=== PATIENT | female | born 1960 | race Caucasian/White ===

== ENCOUNTER → 2017-08-18 | Outpatient (CLI) | payer OTHER | END | disposition home or self-care (01) | LOC: CFH 10:49 | PROVIDERS: ATTEND Obstetrics & Gynecology | DX: Z12.31 Encounter for screening mammogram for malignant neoplasm of breast (principal) | CPT/HCPCS: G0202 ==

== ENCOUNTER → 2020-06-18 | Outpatient (CLI) | payer OTHER | END | disposition home or self-care (01) | LOC: CFH 14:03 | PROVIDERS: ATTEND Obstetrics & Gynecology | DX: Z12.31 Encounter for screening mammogram for malignant neoplasm of breast (principal) | CPT/HCPCS: 77063; 77067 ==

== ENCOUNTER 2021-02-16 12:42 | Outpatient (CLI) | payer OTHER ==
[2021-02-16] MEDS ORDERED: LEVO175T5 PO (13:08)
[2021-02-16] MEDS ORDERED: VITA400C43 PO (13:08)
[2021-02-16] MEDS ORDERED: ASCO500T8 PO (13:08)
[2021-02-16] MEDS ORDERED: MULT-658 PO (13:08)
== END 2021-02-16 23:59 | disposition home or self-care (01) ==
LOC: STAR 12:42
PROVIDERS: ATTEND Surgery
DX: Z02.9 Encounter for administrative examinations, unspecified (principal)

== ENCOUNTER → 2021-02-27 | Outpatient (CLI) | payer OTHER ==
[~2021-02-27] MED LIST: ASCO500T8 PO; LEVO175T5 PO; MULT-658 PO; VITA400C43 PO
== END | disposition home or self-care (01) ==
LOC: STAR 13:46
PROVIDERS: ATTEND Nurse Practitioner
DX: Z20.822 Contact with and (suspected) exposure to COVID-19 (principal)
CPT/HCPCS: U0003; U0005

== ENCOUNTER 2021-03-05 11:43 | Day surgery (SDC) | payer OTHER ==
[~2021-03-05] VITALS: Ht 182.9 cm; Wt 78.9 kg
[~2021-03-05 11:43] MED LIST changes: +ACETAMINOPHEN 325 MG TABLET PO PRN; +DIAZEPAM 5 MG/ML, 2ML IVPush PRN; +DIPHENHYDRAMINE 50 MG/ML, 1ML IVPush PRN; +EPHEDRINE 50 MG/ML, 1ML IVPush PRN; +FENTANYL PF 100 MCG/2ML IV PRN; +HALOPERIDOL 5 MG/ML IV PRN; +HYDROmorphone 1 MG/ML, 1ML INJ IVPush PRN; +KETOROLAC 30 MG/1 ML IV PRN; +LABETALOL 5MG/ML, 20ML IV PRN; +MEPERIDINE/PF 25MG/0.5ML IVPush PRN; +METOCLOPRAMIDE 5 MG/ML, 2ML IVPush PRN; +METOPROLOL 1 MG/ML, 5ML IV PRN; +ONDANSETRON 2MG/ML, 2ML IVPush PRN; +OXYcodone 5 MG/5 ML ORAL.SOL UDC PO PRN; +PROMETHAZINE 25 MG/ML, 1ML IVPush PRN; +hydrALAzine 20 MG/ML, 1ML IV PRN
[2021-03-05] MEDS ORDERED: BUPIVACAINE/PF 0.5% ONE (12:01)
[2021-03-05] MEDS ORDERED: EPINEPHRINE 1 MG/ML, 1ML ONE (12:01)
[2021-03-05 12:29] VITALS: BP 133/87
[2021-03-05] MEDS ORDERED: CHLORHEXIDINE 15 ML UDC PO ONE (12:30)
[2021-03-05] MEDS ORDERED: LACTATED RINGERS 1,000 ML IV SCH (12:30)
[2021-03-05] MEDS ORDERED: CHLORHEXIDINE 15 ML UDC ONE (12:36)
[2021-03-05] MEDS ORDERED: MIDAZOLAM 1 MG/ML, 2ML ONE (12:45)
[2021-03-05] MEDS ORDERED: HYDROmorphone 1 MG/ML, 1ML INJ ONE (12:45)
[2021-03-05] MEDS ORDERED: FENTANYL PF 100 MCG/2ML ONE (12:45)
[2021-03-05] MEDS ORDERED: LIDOCAINE 1%, 20ML ONE (13:52)
[2021-03-05] MEDS ORDERED: CEFAZOLIN 1,000 MG ONE (13:52)
[2021-03-05] MEDS ORDERED: DEXAMETHASONE 4 MG/ML, 1ML ONE (13:52)
[2021-03-05] MEDS ORDERED: PROPOFOL 10 MG/ML, 20ML ONE (13:52)
[2021-03-05] MEDS ORDERED: HYDR-2214 PO ×3 (14:39→14:52)
[2021-03-05] MEDS ORDERED: ONDA4TAB7 PO (14:52)
== END 2021-03-05 15:45 | disposition home or self-care (01) ==
LOC: OR 11:43
PROVIDERS: ATTEND Surgery
DX: D17.1 Benign lipomatous neoplasm of skin and subcutaneous tissue of trunk (principal); E03.9 Hypothyroidism, unspecified; Z20.822 Contact with and (suspected) exposure to COVID-19; Z79.890 Hormone replacement therapy; Z79.899 Other long term (current) drug therapy; Z85.3 Personal history of malignant neoplasm of breast; Z90.11 Acquired absence of right breast and nipple
CPT/HCPCS: 21933; 88304; J0171; J0690; J1100; J1170; J2250; J2704; J3010; J7120; U0003; U0005